=== PATIENT | male | born 1955 | race Caucasian/White ===

== ENCOUNTER 2022-01-18 11:49 | Outpatient (CLI) | payer MEDICARE, SELFPAY ==
--- NOTE | 2022-01-18 12:48 | ECG_ITS ---
Measurements Intervals [place] Rate: 52 P: 264 NC: 192 QRS: -20 QRSD: 126 T: 28 QT: 459 QTc: 427 Interpretive Statements SINUS OR ECTOPIC ATRIAL BRADYCARDIA INTRAVENTRICULAR CONDUCTION DELAY POOR R WAVE PROGRESSION, ANTERIOR LEADS BASELINE ARTIFACT- I, II, III, AVR, AVL, AVF, V1-V6 BORDERLINE ECG NO PREVIOUS ECG AVAILABLE FOR COMPARISON Electronically Signed On 01-18-2022 13:38:52 [employer] by Kvng Proctor D.O.
[2022-01-18 13:27] LABS: Basophils Absolute Auto 0.1 K/mm3 (0.0-0.1); Basophils Percent Auto 0.9 % (0.2-1.2); Eosinophils Absolute Auto 0.4 K/mm3 (0-0.3); Eosinophils Percent Auto 6.1 % (0-4.4); Hematocrit 44.3 % (42.0-52.0); Hemoglobin 15.6 g/dL (14.0-18.0); Immature Granulocyte Absolute 0.03 K/mm3 (0.00-0.031); Immature Granulocyte Percent A 0.5 % (0-0.5); Immature Platelet Fraction Pct 7.9 % (0.9-11.2); Lymphocytes Absolute Auto 1.63 K/mm3 (0.9-3.2); Lymphocytes Percent Auto 28.3 % (18.3-44.2); Mean Corpuscular HGB Conc 35.2 g/dl (32-36); Mean Corpuscular Hemoglobin 34.6 pg (26-34); Mean Corpuscular Volume 98.2 fl (80-100); Mean Platelet Volume 11.2 fl (7.4-10.4); Monocytes Absolute Auto 0.4 K/mm3 (0.1-0.6); Monocytes Percent Auto 6.8 % (2.6-8.5); Neutrophils Absolute Auto 3.3 K/mm3 (1.3-6.7); Neutrophils Percent Auto 57.4 % (45.5-73.1); Platelet Count Result 141 k/mm3 (150-375); Red Blood Count 4.51 M/mm3 (4.6-6.20); Red Cell Distribution Width 11.8 % (11.5-14.5); White Blood Count 5.8 K/mm3 (4.5-10.0)
[2022-01-18 13:31] LABS: Albumin Level 4.7 g/dL (3.5-5.1); Anion Gap 11 mmol/L (8-16); Blood Urea Nitrogen 18 mg/dL (9-20); Calcium 8.8 mg/dL (8.4-10.2); Carbon Dioxide 29 mmol/L (22-30); Chloride 100 mmol/L (98-107); Estimated Glomerular Filt Rate > 60; Glucose 97 mg/dL (65-110); Potassium 4.1 mmol/L (3.4-5.0); Sodium 140 mmol/L (137-145)
[2022-01-18 13:33] LABS: Hemoglobin A1C 5.6 % (<5.7)
[2022-01-18 13:38] LABS: Urine Cotinine NEGATIVE
== END 2022-01-18 11:50 | disposition home or self-care (01) ==
LOC: ANHSURGERY 11:54
PROVIDERS: PCP Family Medicine Adolescent Medicine; Visit Provider Orthopaedic Surgery
DX: M17.11 Unilateral primary osteoarthritis, right knee (principal); Z01.818 Encounter for other preprocedural examination; I45.9 Conduction disorder, unspecified
CPT/HCPCS: 80048; 80307; 82040; 83036; 85025; 85055; 87081; 93005

== ENCOUNTER 2022-02-09 01:25 | Day surgery (SDC) | payer MEDICARE, SELFPAY ==
[2022-01-18 12:16] VITALS: BP 123/75; PULSE 56; RESP 16; TEMP 36.3; O2SAT 97; BMI 33.7
--- NOTE | 2022-01-18 12:25 | PC.NURSE ---
Report to the Outpatient Waiting Room, entrance under the green pavilion located off [facility], at time __6:00AM on date _02/09/22 . Planned Procedure Time: __7:30AM . Time changes happen often and if your time is changed the preop area will call you the afternoon before. - You and your visitor will be asked to self-screen and do not enter if you have any COVID symptoms. - We encourage only one visitor and NO visitors under age 16 are allowed at this time. Your visitor will receive communication by the phone number that is given day of service. - The patient visitor is requested to social distance or may leave the building when not with patient due to restrictions. - A mask is required within the hospital. Patients may have clear liquids (water, carbonated beverages, clear teas, apple juice) until 3 hours prior to surgery with a maximum of 20 ounces. - No food from midnight until time of surgery Take the following medications with a SIP of water the morning of surgery: ___PROPRANOLOL Medications to discontinue per physician ___HOLD INDOMETHACIN 7 DAYS PRE-OP, HOLD ASPIRIN PER DR HASTINGS, HOLD ALL VITAMINS/SUPPLEMENTS 3 DAYS PRE-OP- LAST DOSE 02/05/22 Please no make-up, nail german, hairspray, perfume, deodorant, or body powder the day of surgery. No jewelry (including any body piercings) or valuables the day of surgery, leave them at home. Please take a shower or bath the night before, or the morning of, surgery with an antibacterial soap. Wear comfortable, loose fitting clothing. Children are encouraged to wear pajamas. - Jewelry must be removed prior to entering the operating room. Rings and piercings that are not removed may be cut off. - The hospital will not accept responsibility for valuables. - Please leave all valuables, including medications, at home the day of surgery. If you are going home after surgery, a licensed transportation driver must drive you home. - NO public transportation without another adult. - We recommend that an adult stay with you for 24 hours following discharge. - We also recommend that you do not drive, make important decision, drink alcoholic beverages, or take any drugs that were not prescribed by your health care provider for at least 24 hours after your discharge time. Follow any additional instructions given to you from your surgeon. If you or anyone in your household have experienced Covid symptoms in the past week, please notify your surgeon or the nurse liaison at the phone number below for possible testing. Telephone instructions given to __PATIENT and asked if any additional questions and then verbalized understanding. Patient advised to call surgeon office or pre surgery nurse liaison [phone] if any additional questions.
--- NOTE | 2022-02-07 16:34 | PM.IMHP ---
H&P: HPI History of Present Illness Date/Time: 02/07/22 16:34 Chief Complaint: Right knee DJD Narrative: 66-year-old male patient of Dr. Dumont who presents today for a right total knee arthroplasty. He has been having progressively worsening pain in his right knee for the last several years. He has had cortisone injections in the past last 1 was in 2017. He takes indocin and on a scheduled basis and has done this for years. Patient has severe medial compartment osteoarthritis in the right knee. He has symptoms on a daily basis that are affecting his lifestyle at this point. He feels he is ready proceed with total knee arthroplasty rather than continue nonsurgical treatment at this point. Review of Systems Review of Systems: All systems reviewed & are unremarkable except as noted in HPI and below PMFSH Social History Social History Smoking packs per day: 1 Smoking cigarettes per day: 20.0 Years smoked: 30 Smoking pack-years: 30.00 Smoking status: Former smoker Tobacco type: cigarettes Smoking end date: 09/03/97 Alcohol intake: current Drinks per week: 21 Substance use: never Additional living arrangements comments: SPOUSE Spiritual care concerns: No Meds Home Medications and Allergies Home Medications Medication Instructions Recorded Confirmed Type aspirin 81 mg tablet,delayed 81 mg PO DAILY 10/27/21 01/18/22 History release (Adult Aspirin Regimen) simvastatin 40 mg tablet See Rx Instructions .Route 11/26/21 01/18/22 Rx .COMPLEX #100 tabs indomethacin 50 mg capsule See Rx Instructions .Route 12/05/21 01/18/22 Rx .COMPLEX #300 caps propranolol 120 mg capsule,24 See Rx Instructions .Route 01/09/22 01/18/22 Rx hr,extended release .COMPLEX #100 caps vmezsofg-ucu-wzqtl acid 300 1 tablet PO DAILY 01/18/22 01/18/22 History mcg-lycopene 600 mcg-lutein 300 mcg tablet (Centrum Silver Men) testosterone 100 mg/mL 250 mg IM WEEKLY 01/18/22 01/18/22 History intramuscular suspension Allergies Allergy/AdvReac Type Severity Reaction Status Date / Time No Known Allergies Allergy Mild Verified 01/25/22 12:48 Exam Narrative: 59-year-old male alert pleasant. He is 6 ft tall and 253 lb his BMI is 34.3. He has a 2+ dorsalis pedis and posterior artery pulse palpable in the right foot. Normal sensation right foot. Range motion of the knee is from 2-135 degrees. He has a mild effusion. Hip range of motion is full without discomfort. Minimal tenderness over the medial joint line. Negative Stinchfield maneuver. Normal quad strength. No edema in lower extremity. Resp: Auscultation: clear to auscultation bilaterally Cardio: Rate: regular rate Rhythm: regular rhythm Assessment and Plan Assessment and plan (1) Arthritis of knee, right: Code(s): M17.11 - Unilateral primary osteoarthritis, right knee Status: Acute Plan 66-year-old male who has severe medial compartment osteoarthritis in the right knee. Again at this point it is affecting him on a daily basis and he feels he is ready proceed with total knee arthroplasty at this point. Surgical procedure as well as the risks and complications were discussed in detail questions were answered and we will proceed. Patient will avoid his indomethacin and any other aspirin ibuprofen products 1 week prior to surgery. He will see Dr. Dumont for pre-surgical clearance. We will plan to use Eliquis for DVT prophylaxis postoperatively. His Chem panel, creatinine 0.90 wrist was Chem panel is a normal limits. Hemoglobin 15.6 and platelets are 141. Patient's nasal swab was negative.
[2022-02-09] VITALS (16 sets, daily range): BP systolic 125–159; BP diastolic 64–98; PULSE 86–101; RESP 9–20; TEMP 36.1–36.9; O2SAT 92–99
--- NOTE | ~2022-02-09 | XR_ITS ---
EXAMINATION: XR knee RT 2V DATE: 02/09/2022 11:43 [employer]IC[employer] INDICATION: Right total knee arthroplasty TECHNIQUE: 2 views right knee FINDINGS: There is a right total knee arthroplasty in expected position. Subcutaneous gas with fluid and air in the joint are consistent with recent surgery. No evidence of periprosthetic fracture. IMPRESSION: 1. Recent right total knee arthroplasty. Reviewed, dictated and finalized at location A. [employer] ENG[employer]ER
[2022-02-09] MEDS: ACETAMINOPHEN 500 MG TABLET 1000 MG PO ×3 (06:25→21:04)
[2022-02-09] MEDS: LACTATED RINGERS 1,000 ML 30 ML IV CONT ×2 (06:40→11:23)
--- NOTE | 2022-02-09 06:40 | P.PNAN_ITS ---
Anes - Initial Pre Proc Eval Procedure: Operation Date: 02/09/22 07:30 Proposed Procedures p Right Total Knee Arthroplasty - Gelacio Kowalski MD Date/Time: 02/09/22 06:40 Surgeon: Gelacio Kowalski MD Pre Op Diagnosis: oa right knee Patient Data Age: 66 Gender: M Height: 1.83 m Weight: 113.1 kg Last Vital Signs Temp 36.3 C L 01/18/22 12:16 Pulse 56 L 01/18/22 12:16 Resp 16 01/18/22 12:16 BP 123/75 01/18/22 12:16 Pulse Ox 97 01/18/22 12:16 O2 Del Method Room Air 01/18/22 12:16 Allergies Allergy/AdvReac Type Severity Reaction Status Date / Time No Known Allergies Allergy Mild Verified 02/09/22 06:22 Home Medications Medication Instructions Recorded Confirmed Type aspirin 81 mg tablet,delayed 81 mg PO DAILY 10/27/21 02/09/22 History release (Adult Aspirin Regimen) simvastatin 40 mg tablet See Rx Instructions .Route 11/26/21 02/09/22 Rx .COMPLEX #100 tabs indomethacin 50 mg capsule See Rx Instructions .Route 12/05/21 02/09/22 Rx .COMPLEX #300 caps propranolol 120 mg capsule,24 See Rx Instructions .Route 01/09/22 02/09/22 Rx hr,extended release .COMPLEX #100 caps ceyfnadj-zda-gterv acid 300 1 tablet PO DAILY 01/18/22 02/09/22 History mcg-lycopene 600 mcg-lutein 300 mcg tablet (Centrum Silver Men) testosterone 100 mg/mL 250 mg IM WEEKLY 01/18/22 02/09/22 History intramuscular suspension Patient hx anesthesia problems: none Family hx anesthesia problems: none Results Review: All pre-operative results and documents have been reviewed as part of the pre- operative evaluation. [facility] Social History Social History Smoking packs per day: 1 Smoking cigarettes per day: 20.0 Years smoked: 30 Smoking pack-years: 30.00 Smoking status: Former smoker Tobacco type: cigarettes Smoking end date: 09/03/97 Alcohol intake: current Drinks per week: 21 Substance use: never Living arrangements: with family Additional living arrangements comments: [facility]OU[place] Spiritual care concerns: No Anes - Eval Final PreProcedure Day of Procedure 02/09/22 06:40 Patient weight: obese Heart: regular rate and rhythm Lungs: decreased breath sounds Airway: Mallampati scale class III Neurological: alert and oriented Last oral intake: >/= 8 hours ASA classification: III Emergent: no Anesthetic plan: proceed Anesthesia type and monitoring: general ETT and standard monitoring Results Review: All pre-operative results and documents have been reviewed as part of the pre- operative evaluation. Informed Consent: The patient's anesthetic plan and its attendant risks and benefits were discussed with the patient/family/POA. Questions were solicited and answers provided to the satisfaction of the patient/family/POA.
[2022-02-09] MEDS: TRANEXAMIC ACID 1,000MG/ISO100 1,000 MG/100 ML BAG 200 MG IVPB (06:59)
--- NOTE | 2022-02-09 07:18 | WPDHPUPDATE1 ---
History and Physical Update Update Date/Time: 02/09/22 07:18 History and Physical has been reviewed, including an updated exam of the patient. There are NO changes in the patient's condition. Risks, benefits, and alternatives have been discussed and questions answered. Patient agrees to proceed with procedure.
[2022-02-09] MEDS: ceFAZolin 2 GM/D5W 50 ML 2 GM/50 ML BAG IVPB ×3 (07:38→23:51)
[2022-02-09] MEDS: ceFAZolin SODIUM 1 GM VIAL 3 GM (08:17)
[2022-02-09] MEDS: GENTAMICIN BONE CEMENT REFOBACIN 1 EACH TOPICAL (08:18)
[2022-02-09] MEDS: ceFAZolin SODIUM 1 GM VIAL 2 GM IV PUSH (10:07)
[2022-02-09] MEDS: TRANEXAMIC ACID 1,000 MG/10 ML AMPUL 1000 MG IV PUSH (10:08)
[2022-02-09] MEDS: KETOROLAC 15 MG/ML VIAL (*BKC) IV PUSH ×3 (10:14→23:52)
--- NOTE | 2022-02-09 11:36 | W.PM.PROC2 ---
Procedure Note - Detailed Date of Procedure 02/09/22 Pre-op Diagnosis oa right knee Post-op Diagnosis Same Procedure Performed Right total knee arthroplasty Surgeon Gelacio Kowalski MD [employer] Head Juana Singleton Anesthesia General Description of Procedure Patient was brought to the operating room and general anesthesia was administered. He received weight based vancomycin 2 g of Ancef 1 g of and tranexamic acid preoperatively. The right leg was prepped draped usual fashion. He had a slight positive bounce under anesthesia getting him few degree flexion contracture. Limb was exsanguinated tourniquet elevated to 300 mmHg. 8 in longitudinal midline incision was used and a standard parapatellar arthrotomy utilized. Infrapatellar and suprapatellar fat pads were excised a quadriceps synovectomy carried out. The patella had almost normal cartilage except for a 5 mm area of central chondromalacia. There was some small osteophytes were trimmed. A minimal lateral facetectomy was performed. I felt the patella was suitable for non resurfacing. A guide mikael was inserted down the femoral canal after aspiration of canal contents using the 5 degree valgus cutting bushing 9 mm of bone removed the distal femur. This removed equal amounts medially and laterally because of the eburnation on the medial femoral condyle. Next the tibial plateau was cut. We tried to make a conservative cut because he did not have very much slope posteriorly. A skim cut was made off the low point medial tibial plateau and we assessed the alignment. I thought we were in perhaps a degree of record bottom. We applied the tibial cutting guide introducing a little bit more slope using the same pin hole and this removed about a mm more of bone from the posterior aspect of the tibial plateau. Bone quality was excellent. Meniscal remnants were excised and the PCL was recessed. Flexion gap measured 9 mm medially and 12 mm laterally. The femoral sizing guide was applied distal femur set at 4? of external rotation which matched Whitesides line. Posterior referencing pinholes were placed and the size 72.5 vanguard cutting block was applied AP and chamfer cuts were made this was a nice fit medial to lateral and anterior to posterior. The we inserted the 10 mm CR insert and with a Cárdenas elevator we had about 1/2-2 mm of gap medially at 90? 2-2 and half laterally. He did not have a significant varus deformity is medial compartment osteoarthritis therefore we did not perform any medial capsule release. We removed the small anteromedial residual osteophytes. The tibia was sized to a 79 placed at proper rotation and punched. We trialed with the 11 insert and we had appropriate stability at 90? of flexion to anterior drawer. We lacked about 5? of extension and there is no play medially and laterally in this position. Therefore an additional 2 mm of bone removed the distal femur chamfer cuts revisited. We trialed again and the knee had a fairly positive bounce with 1 mm of medial opening the valgus stress and no lateral opening and I did not feel this was satisfactory. Therefore an additional 1 mm of bone was removed the distal femur chamfer cuts revisited. Femoral component was placed on the femur and removed residual posterior femoral bone was removed. We did not perform posterior capsular release. Now on trialing the knee came out to full extension with negative bounce a 2 mm medial opening and 1 mm lateral opening in extension excellent anterior drawer stability all the way back. Before the last femoral cut we had put down the tourniquet. Limb was re-exsanguinated and tourniquet real a vein at this time. Lug drills for the femoral component were drilled. A step drill was used to make numerous holes throughout the tibial plateau and distal femur as his bone quality was quite dense. The bony surfaces were thoroughly irrigated and dried. Two batches of methylmethacrylate 1 gentamicin powder mixed cem
[2022-02-09] MEDS: fentaNYL CITRATE INJ (*CRX) 100 MCG/2 ML VIAL 25 MCG IV PUSH ×7 (11:49→12:36)
--- NOTE | 2022-02-09 13:21 | ADMGEN ---
This patient, Albaro Yancey, was admitted to Medical Room [facility]- at 1256. Patient/family oriented to hospital policies and general routines including ID bracelet, bed and alarms, visiting hours, pain management, procedures, bathroom and other care routines, personal items, smoking policy, room service/diet, and visiting hours. Information on how to activate the Rapid Response Team has been discussed. Patient/Family are encouraged to report perceived risks to care and to ask questions if they do not understand what they are told or what they should do.
[2022-02-09] MEDS: MORPHINE SULFATE (*CRX) 2 MG/ML INJ IV PUSH (13:36)
[2022-02-09] MEDS: SODIUM CHLORIDE 0.9% IV 1,000 ML 125 ML IV CONT (14:16)
[2022-02-09] MEDS: oxyCODONE HCL (*CRX) 5 MG TAB IR PO ×3 (14:22→21:04)
--- NOTE | 2022-02-09 23:45 | WPDCN ---
Assessment and Plan Assessment and plan (1) Arthritis of right knee: Code(s): M17.11 - Unilateral primary osteoarthritis, right knee Status: Acute Assessment and Plan: Postoperative day 0 status post right total knee arthroplasty. Wound care, pain control, and DVT prophylaxis deferred to Dr. Kowalski. PT/OT consulted. Check baseline labs in a.m. (2) Essential tremor: Code(s): G25.0 - Essential tremor Status: Acute Assessment and Plan: Continue propranolol. (3) Hypercholesterolemia: Code(s): E78.00 - Pure hypercholesterolemia, unspecified Status: Acute Assessment and Plan: Continue simvastatin. Check LFTs in a.m. Plan Thank you for allowing us to participate in this patient's care. Please do not hesitate to contact us with any questions. Supervising physician for this medical consultation is Dr. Dr. Kristin Daniel. HPI Data of Consult Date/Time: 02/09/22 23:45 Requesting Physician: Gelacio Kowalski MD Consult Narrative Reason for consult: Postoperative medical management. Narrative: This is a 66-year-old male with history of essential tremors, hypercholesterolemia, and osteoarthritis whom the hospitalist service has been consulted for help managing his medical conditions postoperatively. He has had longstanding pain in his right knee which has continued despite conservative outpatient treatment and he presented for elective replacement today. Surgery was performed under general anesthesia with no immediate complications documented an estimated blood loss of 250 mL. Postoperatively his pain is well controlled and he has been up and about in his room to the bathroom and to the chair and is doing well with that. He denies postoperative fever, chills, sweats, chest pain, shortness a breath, nausea, and vomiting. He also denies paresthesias, skin color, and temperature changes distal to the surgical site. He has no personal or family history of DVT. Review of Systems Review of Systems: Twelve systems were reviewed and are negative except for as per HPI. [facility] Past Medical History Medical History (Updated 02/10/22 @ 00:39 by Ana María Mendoza PA-C) Cerebrovascular accident (2011) Presented with ataxia, no residual deficits. Essential tremor Hypercholesterolemia Surgical History Surgical History (Updated 02/10/22 @ 00:26 by Ana María Mendoza PA-C) History of right knee joint replacement (02/09/22) Family History Family History (Updated 02/10/22 @ 00:38 by Ana María Mendoza PA-C) Father Cerebrovascular accident Social History Social History (Updated 02/10/22 @ 00:38 by Ana María Mendoza PA-C) Social History: Surrogate medical decision maker: Linn Yancey, spouse. Code status: Full code. Smoking packs per day: 1 Smoking cigarettes per day: 20.0 Years smoked: 30 Smoking pack-years: 30.00 Smoking status: Former smoker Tobacco type: cigarettes Smoking end date: 09/03/97 Alcohol intake: current Drinks per week: 21 Substance use: never Lack of Transportation: No Lack of Food: Never True Current Housing: I Have Housing Concerned About Future Housing: No Difficulty Paying Gas/Electric Bills: No Difficulty Paying for Meds: No Currently Unemployed: No Education: Trade/Vocational Certificate Difficulty w/ Childcare or Family Care: No Additional living arrangements comments: The patient lives with his in [place]. 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 Spiritual care concerns: No Meds Home Medications and Allergies Home Medications Medication Instructions Recorded Confirmed Type aspirin 81 mg tablet,delayed 81 mg PO DAILY 10/27/21 02/09/22 History release (Adult Aspirin Regimen) simvastatin 40 mg tablet See Rx Instructions .Route 11/26/21 02/09/22 Rx .COMPLEX #100 tabs indomethacin 50 mg capsule See Rx Instructions .Route 12/05/2102/09
[2022-02-10] MEDS: oxyCODONE HCL (*CRX) 5 MG TAB IR PO ×4 (00:28→12:03)
[2022-02-10 02:33] VITALS: BP 154/69; PULSE 99; RESP 18; TEMP 36.5; O2SAT 96
[2022-02-10 06:10] LABS: Basophils Percent Auto 0.2 % (0.2-1.2); Eosinophils Percent Auto 0.4 % (0-4.4); Hematocrit 36.4 % (42.0-52.0); Hemoglobin 12.2 g/dL (14.0-18.0); Immature Granulocyte Absolute 0.04 K/mm3 (0.00-0.031); Immature Granulocyte Percent A 0.5 % (0-0.5); Lymphocytes Absolute Auto 1.17 K/mm3 (0.9-3.2); Lymphocytes Percent Auto 14.3 % (18.3-44.2); Mean Corpuscular HGB Conc 33.5 g/dl (32-36); Mean Corpuscular Hemoglobin 34.2 pg (26-34); Mean Platelet Volume 10.5 fl (7.4-10.4); Monocytes Absolute Auto 0.7 K/mm3 (0.1-0.6); Monocytes Percent Auto 9.1 % (2.6-8.5); Neutrophils Absolute Auto 6.2 K/mm3 (1.3-6.7); Neutrophils Percent Auto 75.5 % (45.5-73.1); Platelet Count Result 153 k/mm3 (150-375); Red Blood Count 3.57 M/mm3 (4.6-6.20); Red Cell Distribution Width 13.1 % (11.5-14.5); White Blood Count 8.2 K/mm3 (4.5-10.0)
[2022-02-10 06:20] LABS: Alanine Aminotransferase 30 U/L (6-50); Albumin Level 4.1 g/dL (3.5-5.1); Alkaline Phosphatase 57 U/L (38-126); Anion Gap 4 mmol/L (8-16); Aspartate Amino Transferase 28 U/L (17-59); Bilirubin,Total 0.4 mg/dL (0.2-1.3); Blood Urea Nitrogen 15 mg/dL (9-20); Calcium 8.1 mg/dL (8.4-10.2); Carbon Dioxide 32 mmol/L (22-30); Chloride 97 mmol/L (98-107); Estimated CRCL calculation 74 ml/min; Estimated Glomerular Filt Rate > 60; Glucose 113 mg/dL (65-110); Potassium 4.2 mmol/L (3.4-5.0); Sodium 133 mmol/L (137-145)
[2022-02-10 06:33] VITALS: BP 126/75; PULSE 97; RESP 16; TEMP 36.4; O2SAT 94
--- NOTE | 2022-02-10 07:20 | PM.PNORT ---
Subjective Subjective Date/Time Seen: 02/10/22 07:20 Postop day 1 patient is alert. Afebrile vital signs are stable. Pain is well controlled. Patient was up overnight walking in the room going to the restroom multiple times. His dressing is dry and intact. He is able do a straight leg raise, neurovascularly he is intact. His Eliquis will start this morning. We will plan to have patient work with therapy today and discharge home early this afternoon Objective Data Vital Signs Vital Signs: Vital Signs - 24 hr 02/09/22 11:22 02/09/22 11:37 02/09/22 11:52 Temperature 36.8 C Pulse Rate 86 94 93 Respiratory Rate 9 L 10 L 11 L Blood Pressure 131/72 145/94 H 141/96 H Pulse Oximetry 97 99 98 Oxygen Delivery Simple Face Mask Room Air Room Air Oxygen Flow Rate 10 02/09/22 12:07 02/09/22 12:20 02/09/22 12:35 Temperature Pulse Rate 92 89 92 Respiratory Rate 11 L 12 12 Blood Pressure 125/98 H 137/98 H 129/73 Pulse Oximetry 96 99 98 Oxygen Delivery Room Air Nasal Cannula Nasal Cannula Oxygen Flow Rate 2 2 02/09/22 12:47 02/09/22 13:57 02/09/22 12:48 Temperature 36.1 C L Pulse Rate 88 93 Respiratory Rate 12 12 Blood Pressure 135/87 126/79 Pulse Oximetry 95 95 97 Oxygen Delivery Nasal Cannula Nasal Cannula Oxygen Flow Rate 2 1 02/09/22 13:03 02/09/22 13:33 02/09/22 14:33 Temperature 36.2 C L 36.3 C L 36.2 C L Pulse Rate 91 93 101 H Respiratory Rate 12 16 16 Blood Pressure 159/83 H 141/87 H 145/64 H Pulse Oximetry 96 94 92 Oxygen Delivery Oxygen Flow Rate 02/09/22 14:50 02/09/22 18:33 02/09/22 20:00 Temperature 36.4 C Pulse Rate 89 89 Respiratory Rate 16 16 Blood Pressure 146/82 H Pulse Oximetry 98 98 Oxygen Delivery Room Air Room Air Oxygen Flow Rate 02/09/22 22:54 02/10/22 02:33 02/10/22 06:33 Temperature 36.8 C 36.5 C 36.4 C Pulse Rate 95 99 97 Respiratory Rate 18 18 16 Blood Pressure 144/80 H 154/69 H 126/75 Pulse Oximetry 95 96 94 Oxygen Delivery Oxygen Flow Rate Intake/Output Intake/Output: Intake & Output 02/07/22 02/08/22 02/09/22 02/10/22 23:59 23:59 23:59 23:59 Intake Total 3180 50 Balance 3180 50 Meds/Results Medications: Active Medications Generic Name Dose Route Start Last Admin Trade Name Freq PRN Reason Stop Dose Admin Acetaminophen 1,000 mg 02/09/22 15:00 02/10/22 04:59 Acetaminophen 500 Mg Tablet PO Not Given Q6H JACKIE Apixaban 2.5 mg 02/10/22 09:00 Apixaban 2.5 Mg Tablet PO Q12HR JACKIE Celecoxib 200 mg 02/10/22 08:00 Celecoxib 200 Mg Capsule PO DAILY@0800 JACKIE Cephalexin HCl 500 mg 02/10/22 13:00 Cephalexin 500 Mg Capsule PO 02/17/22 06:01 Q6HR JACKIE Vancomycin HCl 1,000 mg in 250 mls @ 250 mls/hr 02/09/22 19:00 02/10/22 06:27 Vancomycin 1,000 Mg/D5w 250 Ml IVPB 02/10/22 07:59 250 mls/hr Q12H JACKIE Administration Cefazolin Sodium 2 gm in 50 mls @ 100 mls/hr 02/09/22 16:00 02/10/22 00:25 Ancef 2 Gm/D5w 50 Ml IVPB 02/10/22 08:29 Infused Q8H JACKIE Infusion Morphine Sulfate 2 mg 02/09/22 12:48 02/09/22 13:36 Morphine Sulfate (*Crx) 2 Mg/Ml Inj IV PUSH 2 mg Q1H PRN Administration Pain Rated 7-10 Naloxone HCl 0.1 mg 02/09/22 12:48 Naloxone Hcl 0.4 Mg/Ml Vial IV PUSH Q2M PRN Opiate Reversal Oxycodone HCl 5 mg 02/09/22 13:00 02/10/22 05:37 Oxycodone Hcl (*Crx) 5 Mg Tab Ir PO 5 mg Q4HR JACKIE Administration Oxycodone HCl 5 mg 02/09/22 12:48 Oxycodone Hcl (*Crx) 5 Mg Tab Ir PO Q4H PRN Pain Rated 4-10 Polyethylene Glycol 17 gm 02/10/22 09:00 Polyethylene Glycol 3350 17 Gm Powd.Pack PO QAM [facility] Propranolol HCl 120 mg 02/10/22 09:00 Propranolol Hcl 60 Mg Capsule Cr PO QAM [facility] Simvastatin 20 mg 02/10/22 09:00 Simvastatin 20 Mg Tablet PO DAILY [facility] Radiology Results: ITS Impressions Knee X-Ray 02/09/22 11:43 IMPRESSION: 1. Recent right total knee arthropla
--- NOTE | 2022-02-10 07:24 | PM.DS ---
DS: Admitting Diagnosis Discharge Date 02/10 Admitting Diagnosis Right knee DJD DS: Discharge Diagnosis Discharge Diagnosis (1) Arthritis of right knee: Code(s): M17.11 - Unilateral primary osteoarthritis, right knee Status: Acute DS: Summary Hospital Course Hospital Course: 66-year-old male who underwent right total knee arthroplasty on 02/09. Underwent the procedure without complications. Postoperatively he has been afebrile vital signs are stable. Neurovascularly he is intact. His dressing is dry and intact. He was up walking in the as well as going to the restroom multiple times a day of surgery. Pain overall is well controlled with scheduled Tylenol as well as oxycodone 5 mg. He is also on Celebrex 200 mg daily. He is on Eliquis for DVT prophylaxis. The patient be discharged home on 02/10. He will go home on 1 week of Keflex, he is also going to go home on MiraLax and Senokot. Patient was advised to keep leg elevated at home prevent swelling but do his exercises on an hourly basis to prevent stiffness in the knee. He has outpatient therapy starting next Monday. He was advised any questions or concerns he is to call the office otherwise we will see him at his appointment dates Time Spent with Patient Time attestation: Total time spent providing and/or coordinating discharge services: DS: Data Data Completed and Pending Labs on day of discharge: Labs from last 24 hours 02/10/22 02/10/22 02/09/22 05:48 05:48 06:39 WBC 8.2 RBC 3.57 L Hgb 12.2 L D Hct 36.4 L MCV 102.0 H MCH 34.2 H MCHC 33.5 RDW 13.1 Plt Count 153 MPV 10.5 H Immature Gran % (Auto) 0.5 Neut % (Auto) 75.5 H Lymph % (Auto) 14.3 L [place] % (Auto) 9.1 H Eos % (Auto) 0.4 Baso % (Auto) 0.2 Lymph # (Auto) 1.17 [place] # (Auto) 0.7 H Eos # (Auto) 0.0 Baso # (Auto) 0.0 Abs Immat Gran (auto) 0.04 H Absolute Neuts (auto) 6.2 Absolute Nucleated RBC 0.0 Nucleated RBC % 0.0 Sodium 133 L Potassium 4.2 Chloride 97 L Carbon Dioxide 32 H Anion Gap 4 L BUN 15 Creatinine 1.10 Estim Creat Clear Calc 74 Estimated GFR > 60 Glucose 113 H Calcium 8.1 L Total Bilirubin 0.4 Direct Bilirubin 0.0 AST 28 ALT 30 Alkaline Phosphatase 57 Total Protein 7.0 Albumin 4.1 Blood Type O Positive Antibody Screen Negative Discharge Plan Discharge Patient Disposition: Home, Self-Care Discharge Instructions: ARJUN HASTINGS M.D [facility], [facility] [address] [place] [address] POST-OPERATIVE DISCHARGE INSTRUCTIONS TOTAL KNEE ARTHROPLASTY 1. When resting, lie on back with leg elevated above heart to minimize swelling. Significant swelling could indicate a blood clot and if this occurs call the office (or go to the ER) to have a venous ultrasound. 2. Do exercise 5 times a day. 3. Do not sit with leg down except for meals. 4. Wound Care: Nursing will give additional dressings at discharge. Patient to change dressing at home 1 week from surgery, then maintain until seen in office. 5. May shower with dressing in place. 6. Follow weight bearing status instructions. IMPORTANT: Remember not to sit in the chair for more than 30 minutes at a time. As a rule, during the first 14 days after surgery, only sit in the chair to work on the chair knee bending stretch exercise, for meals or for use of the restroom. Sitting in the chair promotes significant swelling in the knee and leg which will make the knee stiff and more painful and which simulates having a blood clot in the veins of the leg. If this type of significant diffuse swelling occurs, an ultrasound at the hospital will be necessary to rule out a blood clot. Be up walking around with the walker for a few minutes every hour while awake and then rest laying on your back on the couch or in bed with your leg elev
--- NOTE | 2022-02-10 08:37 | WPDANESPN ---
Anes - Prog Note Post-Op Date/Time: 02/10/22 08:37 Cardiovascular status: normal Respiratory status: normal Airway patency: baseline Mental status: baseline Post-Op hydration status: normal Vital Signs: Last Vital Signs Temp 36.4 C 02/10/22 06:33 Pulse 97 02/10/22 06:33 Resp 16 02/10/22 06:33 BP 126/75 02/10/22 06:33 Pulse Ox 94 02/10/22 06:33 O2 Del Method Room Air 02/09/22 20:00 O2 Flow Rate 1 02/09/22 13:57 Pain Score (VAS): 05/13 I/O: Intake & Output 02/09/22 02/10/22 02/10/22 23:59 07:59 15:59 Intake Total 2330 50 Balance 2330 50 Laboratory Tests 02/10/22 05:48 02/10/22 05:48 02/10/22 02/10/22 05:48 05:48 WBC 8.2 RBC 3.57 L Hgb 12.2 L D Hct 36.4 L MCV 102.0 H MCH 34.2 H MCHC 33.5 RDW 13.1 Plt Count 153 MPV 10.5 H Immature Gran % (Auto) 0.5 Neut % (Auto) 75.5 H Lymph % (Auto) 14.[address] [place] % (Auto) 9.1 H Eos % (Auto) 0.4 Baso % (Auto) 0.2 Lymph # (Auto) 1.17 [place] # (Auto) 0.7 H Eos # (Auto) 0.0 Baso # (Auto) 0.0 Abs Immat Gran (auto) 0.04 H Absolute Neuts (auto) 6.2 Absolute Nucleated RBC 0.0 Nucleated RBC % 0.0 Sodium 133 L Potassium 4.2 Chloride 97 L Carbon Dioxide 32 H Anion Gap 4 L BUN 15 Creatinine 1.10 Estim Creat Clear Calc 74 Estimated GFR > 60 Glucose 113 H Calcium 8.1 L Total Bilirubin 0.4 Direct Bilirubin 0.0 AST 28 ALT 30 Alkaline Phosphatase 57 Total Protein 7.0 Albumin 4.1 Post-procedural complaints: none Patient Feedback: Patient satisfied with anesthetic care.
[2022-02-10 08:42] VITALS: BP 142/85; PULSE 90
[2022-02-10 08:44] VITALS: PULSE 90
[2022-02-10] MEDS: polyethylene glycoL 3350 17 GM POWD.PACK PO (08:44)
[2022-02-10] MEDS: SIMVASTATIN 20 MG TABLET PO (08:44)
[2022-02-10] MEDS: CELECOXIB 200 MG CAPSULE PO (08:44)
[2022-02-10] MEDS: PROPRANOLOL HCL 60 MG CAPSULE CR 120 MG PO (08:44)
[2022-02-10] MEDS: APIXABAN 2.5 MG TABLET PO (08:45)
[2022-02-10] MEDS: ACETAMINOPHEN 500 MG TABLET 1000 MG PO (08:45)
[2022-02-10] MEDS: ceFAZolin 2 GM/D5W 50 ML 2 GM/50 ML BAG IVPB (08:46)
[2022-02-10 10:33] VITALS: BP 143/78; PULSE 83; RESP 18; TEMP 36.6; O2SAT 97
[2022-02-10] MEDS: CEPHALEXIN 500 MG CAPSULE PO (12:03)
--- NOTE | 2022-02-10 13:23 | PC.NURSE ---
On 02/10/22, the student, [Zohrhe Florez], provided care and completed [facility] documentation on this patient. I have reviewed the student's documentation and agree with the findings.
== END 2022-02-10 12:30 | disposition home or self-care (01) ==
LOC: ANHSURGERY 06:16 → ANH2MED 13:03
PROVIDERS: PCP Family Medicine Adolescent Medicine; Visit Provider Orthopaedic Surgery
PROC: (CPT 27447; principal; 2022-02-09 07:30)
DX: M17.11 Unilateral primary osteoarthritis, right knee (principal); G25.0 Essential tremor; E78.00 Pure hypercholesterolemia, unspecified; Z79.82 Long term (current) use of aspirin; Z79.890 Hormone replacement therapy; Z87.891 Personal history of nicotine dependence; E66.9 Obesity, unspecified; Z68.33 Body mass index [BMI] 33.0-33.9, adult
CPT/HCPCS: 27447; 36415; 73560; 80048; 80076; 80307; 82040; 83036; 85025; 85055; 86850; 86900; 86901; 87081; 93005; 97110; 97116; 97161; 97165; 97530; 97535; A9270; C1713; C1776; J0171; J0690; J1100; J1170; J1885; J2250; J2270; J2370; J2405; J2704; J2710; J2795; J3010; J3370; J7030; J7120

== ENCOUNTER → 2023-04-20 10:22 | Outpatient (CLI) | payer MEDICARE, SELFPAY ==
--- NOTE | ~2023-04-20 | XR_ITS ---
Clinical Indication: Cough PA and lateral views of the chest: Comparison: 05/07/2013 Findings: The lungs are clear, without evidence of focal consolidation or pleural effusion. Cardiome diastinal silhouette is stable. Bones and soft tissues are unremarkable. Impression: Normal chest. Reviewed, dictated and finalized at location . STRY HUNTER Impression: Normal chest.
== END ==
PROVIDERS: PCP Family Medicine Adolescent Medicine; Visit Provider Family Medicine Adolescent Medicine
DX: R05.3 Chronic cough (principal)
CPT/HCPCS: 71046

== ENCOUNTER 2024-07-17 17:25 | Outpatient (CLI) | payer MEDICARE, SELFPAY ==
--- NOTE | ~2024-07-17 | XR_ITS ---
Lumbosacral Spine: AP and lateral views Clinical History: Pain Findings: The normal lordotic curve is maintained. The vertebral bodies and posterior elements are i ntact. The intervertebral disc spaces are preserved. There is moderate to advanced facet arthropathy from L3 through S1. The sacroiliac joints are normally outlined. Impression: Moderate to advanced facet arthropathy from L3 through S1. Reviewed, dictated and finalized at location . Impression: Moderate to advanced facet arthropathy from L3 through S1.
--- OUTSIDE RECORDS SUMMARY | 2024-07-17 17:33 | XMS_ITS | Data Portability ---
Author Organization [place] - [facility], Main Office Address [address] [place] [address] Care Team Providers Care Sap Bw Bi Developer Name Role Phone MONA LANE Primary Care Provider MONA LANE Referring Provider Assessment Encounter Date Assessment Date Assessment LastModified by Organization Details LastModified Time 06/09/2022 06/09/2022 The patient has a laceration to the distal portion of the volar surface of the left 5th finger after a crush injury as well as a nondisplaced transverse fracture through the distal phalanx left 5th finger. Patient is currently on antibiotics and the laceration has been sutured in the emergency room. Today I took off the soiled dressing and splint. I redressed the finger with Xeroform gauze dry sterile gauze and fashioned a new splint that was well-padded with aluminum splint this was fitted to his best comfort and support. I have advised him to take this off daily briefly to let the skin dry as he is retaining moisture. The wound looks okay but we will see him back in 1 week to take another look, some areas of the skin may become necrotic due to the nature of the injury we will have to follow this closely. He will continue with antibiotics and protection if he starts to have bleeding more pain etc. he will call immediately. He voiced understanding agrees above plan he will keep it clean and dry watch for evidence of infection. If he does develop necrosis or infection surgical intervention may be necessary voiced understanding agrees above plan. Not available 06/09/2022 12:22:10 06/16/2022 06/16/2022 Patient has a healing laceration of the pad of the left 5th finger he also has a transverse fracture nondisplaced through the distal phalanx. Today's x-rays show good alignment no evidence of displacement. Today the sutures removed in the office a clean dry sterile dressing was applied he is going to continue to wear the splint to protect the wound and the fracture as much as possible. I will see him back in 3 weeks for his next recheck he will keep a close eye on things if it starts look infected he will call immediately. He voiced understanding agrees above plan will call for any further problems difficulties or questions. Not available 06/16/2022 10:46:01 07/11/2022 07/11/2022 The patient has a healing fracture of the distal phalanx left 5th finger. The transverse fracture shows continued good alignment nondisplaced. Fracture line is starting to fade with new callus compared to previous x-rays done 3 weeks ago. The laceration the finger is healed nicely at this point he is going to continue to protect it somewhat he can work on some gentle range of motion also very gentle massage to help with the hypersensitivity in the finger pad. As he feels comfortable he can get back into regular activities in about a month. I offered to have him back for 1 final x-ray in a month he declined. He states he is feeling well I think this is okay the fracture should heal and he is feeling good already. If he has any problems difficulties or questions he can call me at any time he voiced understanding and agrees with above plan. Not available 07/11/2022 12:06:53 02/10/2023 02/10/2023 HPI: Patient returns. He is 1 year out from right total knee arthroplasty. He is doing very well. He is happy with his results. He has had no symptoms in the knee. His only complaint is that he is not able to kneel on the right knee. I discussed with him that the majority of people following knee replacement comfortable kneeling on it and he knew this prior surgery. Otherwise he is very happy with his results. Physical exam: 67-year-old male alert pleasant. He has a well-healed incision. No effusion in the right knee. Range of motion is from 0-135 degrees. He has excellent stability both flexion and extension. No swelling in either lower extremity. Impression: Patient is 1 year out right total knee arthroplasty. He has excellent range of motion stability in the knee. X-rays look excellent. Long-term risk of infection was discussed. We will plan on seeing her back in 5 years for routine x-ray surveillance or sooner if he has problems. 20 minutes was spent in treatment patient more than half of this in [id number] conversation duncan Not available 02/10/2023 12:17:04 Plan of Treatment Reminders Order Date Submit Date Provider Last Modified By Organization Details Last Modified Time Details Appointments None record ed. Lab None record ed. Referral None record ed. Procedures None record ed. Surgeries None record ed. Imaging XR, knee 023 02/11/20 23 [email or web address] [facility] [place], [address], [place], [address], 3 15:15:32 XR, finger (s) 023 07/12/19 23 [email or web address] [facility] [place], [address], [place], [address], 3 17:20:38 XR, finger (s), 2 or more view 023 06/17/19 23 [facility] [place], [address], [place], [address], 3 12:20:50 Medication Orders None record ed. Patient TargetsNo targets recorded. Patient InstructionsNo instructions recorded. Reason for Referral None Reported. Results Created Date Observation Date Name Description Value Unit Range Abnormal Flag Note LastModifiedBy Organization Detail LastModifiedTime 03/23/19 23 XR, knee No observ ation record ed. [id number] [facility] [place] [address], [place], [address], 05/04/2022 16:59:41 06/08/19 23 06/06/2022 XR, hand No observ ation record ed. [email or web address] Not Available 06/2022 15:43:03 06/17/19 23 XR, finge r(s), 2 or more view No observ ation record ed. [facility] [place] [address], [place], [address], 06/16/2022 11:10:31 07/12/19 XR, finge r(s) No observ ation record ed. [facility] [place] [address], [place], [address], 07/11/2022 12:10:24 02/11/20 23 XR, knee No observ ation record ed. [email or web address] [facility] [place] [address], [place], [address], 02/10/2023 12:15:58 Result Notes None recorded. Problems Name Problem SNOMED Code Status Onset Date Resolution Date Notes Provider Name and Address Organization Details Recorded Time Osteoarthr itis of knee 858774010 Active Not Available [facility] 3 16:58:10 Knee pain Active Not Available [facility] 3 16:58:10 Osteoarthr itis 881730287 Active Not Available [facility] 3 16:58:10 Pain of right knee joint 9056174827583 00 Active [address] Not [address] 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 3 16:58:10 Pain of left hand 6299716845863 03 Active 2022 TELMA Saleem, [place] [facility] [employer] 3 10:46:53 Laceration of finger of left hand 3422647095768 9106 Active 2022 HEBER Mercado [address] [facility], [facility], [place], [address] , [place] [facility] [employer] 3 12:23:13 Open fracture of distal phalanx of finger 59575456 Active 2022 HEBER Mercado [address], [address], [place], [address] , [employer] 3 12:24:48 Open fracture of distal phalanx of finger 88759146 Active 2022 HEBER Mercado [address], [address], [place], [address] , [employer] 3 12:25:05 Fracture of phalanx of finger 59637579 Active 2022 HEBER Mercado [address], [address], [place], [address] , [employer] 3 11:17:02 Fracture of phalanx of finger 05159152 Active 2022 HEBER Mercado [address], [address], [place], [address] , [employer] 3 11:18:08 Problem Notes None recorded. Procedures Surgical History Date Name Laterality Status Provider Name and Address Organization Details Recorded Time Knee Surgery completed ROZINA Naik [employer] 02/10/2023 11:13:36 Imaging Results Imaging Date Name Status LastModified by Organiz [facility] Details LastModified Time 03/23/2022 XR, knee completed [id number] [facility] [place] [address], [place], [address], 05/04/2022 16:59:41 06/06/2022 XR, hand completed [email or web address] Information n ot available 06/07/2022 15:43:03 06/16/2022 XR, finger(s), 2 or more view completed [facility] [place] [address], [place], [address], 06/16/2022 11:10:31 07/11/2022 XR, finger(s) completed [facility] [place] [address], [place], [address], 07/11/2022 12:10:24 02/10/2023 XR, knee completed [email or web address] [facility] [place] [address], [place], [address], 02/10/2023 12:15:58 Procedure Notes None recorded. Medical Equipment None Reported. Allergies Allergen ID Allergen Name Allergen Category Reaction Reaction Severity Criticality Documentation Date Start Date Code Code System Note Provider Name and Address Organization Details Recorded Time 55003 opipramol Not available Not available Not available Not available 02/10/2023 7674 RxNorm ROZINA Naik, [place] [employer] 11:11:38 Medications Name Sig Start Date Stop Date Status Note LastModified by Organization Details LastModified Time celecoxib 200 mg capsule TAKE 1 CAPSULE BY MOUTH ONCE DAILY AT 8 AM 02/10 completed Not Available Not Available Not Available amoxicillin 500 mg capsule 11/26 completed Not Available Not Available Not Available prednisone 10 mg tablet TAKE 5 TABLETS BY MOUTH ONCE DAILY SEE [employer] ONS 03/11 completed Not Available Not Available Not Available propranolol 80 mg tablet Take 1 tablet twice a day by oral route. 02/23 completed Not Available Not Available Not Available azithromyci n 250 mg tablet 11/26 completed Not Available Not Available Not Available hydrocodone 5 mg-acetamin ophen 325 mg tablet 11/26 completed Not Available Not Available Not Available propranolol ER 60 mg capsule,24 hr,extended release 11/26 completed Not Available Not Available Not Available phentermine 37.5 mg tablet TAKE 1 TABLET BY MOUTH ONCE DAILY IN THE MORNING (MIDMORNI NG) 02/23 completed Not Available Not Available Not Available tramadol 50 mg tablet Take 1 tablet 3 times a day by oral route. 02/10 completed Not Available Not Available Not Available simvastatin 40 mg tablet Take 1 tablet every day by oral route. active Not Available Not Available No t Available hydrocodone 7.5 mg-acetamin ophen 325 mg tablet TAKE 1 TABLET BY MOUTH EVERY 4 HOURS NEEDED FOR PAIN 03/11 completed Not Available Not Available Not Available cephalexin 500 mg capsule TAKE 1 CAPSULE BY MOUTH EVERY 6 HOURS FOR 7 DAYS 03/11 completed Not Available Not Available Not Available triamcinolo ne acetonide 0.1 % topical ointment APPLY TO AFFECTED AREA ON FEET TWICE DAILY 02/10 completed Not Available Not Available Not Available propranolol ER 80 mg capsule,24 hr,extended release active Not Available Not Available Not Available ibuprofen 400 mg tablet 11/26 completed Not Available Not Available Not Available indomethaci n 50 mg capsule Take 1 capsule 3 times a day by oral route. active Not Available Not Available No t Available diclofenac sodium 75 mg tablet,jayson yed release 11/26 completed Not Available Not Available Not Available propranolol ER 120 mg capsule,24 hr,extended release active Not Available Not Available Not Available Viagra 100 mg tablet 11/26 completed Not Available Not Available Not Available testosteron e cypionate 200 mg/mL intramuscul ar oil 11/26 completed Not Available Not Available Not Available methylpredn isolone 4 mg tablets in a dose pack 11/26 completed Not Available Not Available Not Available tolmetin 400 mg capsule 11/26 completed Not Available Not Available Not Available naproxen 500 mg tablet TAKE 1 TABLET BY MOUTH TWICE DAILY, TAKE WITH FOOD 02/10 completed Not Available Not Available Not Available amoxicillin 875 mg-potassiu m clavulanate 125 mg tablet TAKE 1 TABLET BY MOUTH EVERY 12 HOURS FOR 10 DAYS 02/10 completed Not Available Not Available Not Available oxycodone 5 mg tablet TAKE 1 TABLET BY MOUTH EVERY 4 HOURS 03/11 completed Not Available Not Available Not Available Testim 50 mg/5 gram (1 %) transdermal gel 11/26 completed Not Available Not Available Not Available aspirin 2021 active Not Available Not Available Not Avai lable Zostavax (PF) 19,400 unit/0.65 mL subcutaneou s suspension 11/26 completed Not Available Not Available Not Available Eliquis 2.5 mg tablet TAKE 1 TABLET BY MOUTH EVERY 12 HOURS FOR 14 DAYS 03/11 completed Not Available Not Available Not Available Fluvirin 1262-6901 45 mcg (15 mcg x 3)/0.5 mL intramuscul ar suspension INJECT 0.5 ML INTRAMUSC ULARLY DIRECTED. 11/26 completed Not Available Not Available Not Available Fluarix Quad 4976-2842 (PF) 60 mcg (15 mcg x 4)/0.5 mL IM syringe 11/26 completed Not Available Not Available Not Available Fluvirin (PF) 45 mcg (15 mcg x 3)/0.5 mL intramuscul ar syringe ADM 0.5ML IM UTD 11/26 completed Not Available Not Available Not Available Fluarix Quad (PF) 60 mcg (15 mcg x 4)/0.5 mL IM syringe ADM 0.5ML IM UTD active Not Available Not Available No t Available Vitals Date Recorded Body height Provider Name an d Address Organization Details Last Updated DateTime 03/23/2022 182.88 cm Not Available [facility] 16:57:53 Date Recorded Body height Body mass index (BMI) Body weight Provider Name and Address Organization Details Last Updated DateTime 06/09/2022 182.88 cm 29.8 kg/m2 73165.32 g Chaparrita Hoover [facility] [employer] 06/09/2022 10:46:29 Date Recorded Body height Body mass index (BMI) Body weight Provider Name and Address Organization Details Last Updated DateTime 06/16/2022 182.88 cm 29.8 kg/m2 71439.32 g Nicole Romo [facility] [employer] 06/16/2022 10:19:34 Date Recorded Body height Provider Name an d Address Organization Details Last Updated DateTime 07/11/2022 182.88 cm Misa Yun Abdifatah [employer] 07/11/2022 11:41:20 Date Recorded Body height Body mass index (BMI) Body weight Provider Name and Address Organization Details Last Updated DateTime 02/10/2023 198.12 cm 30 kg/m2 522958.02 g Misa Yun [facility] [employer] 02/10/2023 11:22:41 Social History None recorded. Functional Status Question Answer Note LastModified by Organizat ion Details LastModified Time What is your level of alcohol consumption? Moderate [id number] Information not available 05/04/2022 Mental Status None recorded. Family History Relationship Description Onset Age of this Age Resolved Age Notes LastModified by Organization Details LastModified Time Father Hypertensive disorder [email or web address] Not available 2022 11:13:02 Medical History Condition Response BLINDNESS N KIDNEY STONES N MRSA N CARPAL TUNNEL SYNDROME N LUNG DISEASE/DISORDER N HISTORY OF DRUG ABUSE N RADIATION / CHEMOTHERAPY N COPD N SPORTS INJURY N ANKLE PAIN N BLOOD DISEASES N SCHIZOPHRENIA N SHINGLES N SHOULDER PAIN N DEPRESSION (INCLUDING POST ) N BOWEL PROBLEMS N STROKE/TIA Y ULCERS N KNEE PAIN N BENIGN PROSTATIC HYPERPLASIA N OBESITY N GERD/NAUSEA N ANEURYSM N URINARY/BLADDER/KIDNEY PROBLEMS N CORONARY ARTERY DISEASE (CAD) N ADDICTION CONCERNS N USE OF BLOOD THINNERS N SKIN PROBLEMS N EMPHYSEMA N MUSCLE,JOINT OR BONE PROBLEMS N DVT N STOMACH ULCERS N BLOOD CLOTS N USE OF NSAIDS N CONCUSSION OR SPINAL TRAUMA N NEUROPATHY N AIDS/HIV N FRACTURES N HYPERTENSION N ELBOW PAIN N TOURETTE'S N Metal allergy N ANXIETY DISORDER N BLOOD TRANSFUSION N ANEMIA/BLOOD DISORDER N BIPOLAR DISORDER N BRONCHITIS N OSTEOARTHRITIS N TUBERCULOSIS N FOOT PROBLEM N HEART VALVE DISORDERS N ALLERGIES/HAYFEVER N SOFT TISSUE INJURY N INFECTIOUS DISEASE N HEART ARRHYTHMIA N INSOMNIA N HIGH CHOLESTEROL / HYPERLIPIDEMIA N RHEUMATOID ARTHRITIS N EDEMA N CHRONIC PAIN SYNDROME N CAROTID BLOCKAGE N BACK / NECK PROBLEMS N HAVE YOU BEEN HOSPITALIZED OR SEEN IN [facility] ER IN THE PAST YEAR ? N BURSITIS N HERNIATED DISC N DIALYSIS N FIBROMYALGIA N OSTEOPOROSIS N ARTHRITIS N NO SIGNIFICANT PAST MEDICAL HISTORY N PERIPHERAL NEUROPATHY N DIABETES, TYPE N HEARTBURN / REFLUX N HEPATITIS / LIVER DISEASE N GOUT N ALZHEIMER'S DISEASE N SLEEP DISORDER N HERPES N HEADACHES/MIGRAINES N SEIZURES/EPILEPSY N VASCULAR DISEASE N Blood Disorder N HIP PAIN N DIZZINESS N HEAD TRAUMA OR INJURY N HEART DISEASE/HEART PROBLEMS N MULTIPLE SCLEROSIS N CANCER: SPECIFY N CARDIAC ARRHYTHMIA N ANESTHESIA COMPLICATIONS N ATRIAL FIBRILLATION N AUTOIMMUNE DISEASE N Past Encounters Encounter ID Performer Location Encounter Start Date Encounter Closed Date Diagnosis/Indication Diagnosis SNOMED-CT Code Diagnosis ICD10 Code Diagnosis Note [id number] Gelacio Kowalski MD [facility] [place] [address] [place] [address] 11/26/2021 00:00:00 11/28/2021 15:54:36 [id number] Gelacio Kowalski MD [facility] [place] [address] [place] [address] 02/23/2022 00:00:00 02/23/2022 12:32:46 [id number] Gelacio Kowalski MD [facility] [place] [address] [place] [address] 03/11/2022 00:00:00 03/11/2022 12:12:04 [id number] Gelacio Kowalski MD [facility] [place] [address] [place] [address] 03/23/2022 00:00:00 03/23/2022 11:35:48 [id number] Almas Montgomery MD [facility] [place] [address] [place] [address] 06/09/2022 10:30:53 06/09/2022 12:42:01 Pain of left hand 8625526663 78879 M79.642 Laceration of finger of left hand 6762053198 7877172 S61.211A Open fract ure of distal phalanx of finger 30569400 S62.667B [id number] Almas Montgomery MD [facility] [place] [address] [place] [address] 06/16/2022 10:13:04 06/16/2022 11:00:45 Pain of left hand 6845618681 43980 M79.642 Laceration of finger of left hand 9847815046 4398169 S61.211A Fracture o f phalanx of finger 23077797 S62.667D [id number] Almas Montgomery MD [facility] [place] [address] [place] [address] 07/11/2022 11:38:22 07/11/2022 17:20:38 Pain of left hand 9870970700 82268 M79.642 Laceration of finger of left hand 2017427091 5555610 S61.211D Fracture o f phalanx of finger 07939875 S62.667D [id number] Gelacio Kowalski MD [facility] [place] [address] [place] [address] 02/10/2023 10:42:24 02/10/2023 12:18:12 History of right total knee replacement 8931169717 909280 Z96.651 Health Concerns Section Related Observation LastModified by Organization Detai ls LastModified Time None Recorded Concern Status LastModified by Organization Details LastModified Time None Recorded Advance Directives Directive None Recorded Payers Encounter Date Sequence Insurance Name Policy Number Policy Zuniga Covered Member ID [id number] Member ID Guarantor Name 06/09/2022 1 [facility] (MEDICARE REPLACEMENT/A DVANTAGE - HMO) [id number] Albaro E Naye [id number] Albaro Yancey 06/16/2022 1 [facility] (MEDICARE REPLACEMENT/A DVANTAGE - HMO) [id number] Albaro E Naye [id number] Albaro Naye 07/11/2022 1 [facility] (MEDICARE REPLACEMENT/A DVANTAGE - HMO) [id number] Albaro E Naye [id number] Albaro Naye 02/10/2023 1 [facility] (MEDICARE REPLACEMENT/A DVANTAGE - HMO) [id number] Albaro E Naye [id number] Albaro Yancey Notes Date Note Type Note Provider Name and Address Organization Details Recorded Time 06/09/2022 text/html patient is a 67-year-old male who suffered an injury to his left 5th finger 2 days ago. The patient was closing a heavy metal gate when the roller wheel on the gait rolled over his finger and crushed it. He had a significant laceration to the pad of the left 5th finger also. He went to the emergency room at [facility] had x-rays and exam performed. X-rays demonstrated a closed acute traumatic nondisplaced transverse fracture through the distal phalanx of the left 5th finger. This was an open fracture with a significant laceration through the pad of the finger. He had several sutures placed after irrigation and was placed on antibiotics. He is currently on a course of Augmentin he was given pain medication as well and splinted he states that for the most part he is not having too much discomfort. He is able to wiggle his fingers today I removed the splint and dressing as it was soaked through with dried blood to inspect it further. There was no active bleeding currently. He has some numbness throughout the finger pad due to laceration with significant swelling, there is obvious skin changes due the fact that it is retaining too much moisture. Otherwise the sutures are intact laceration is well approximated clean and dry. The nail is intact as well. He is able to do some motion of the the IP joint flexor extensor tendons appear to be intact. He comes in today for initial evaluation and further treatment recommendations. I reviewed the x-rays in detail today with the patient and agree with the above findings.Past medical history sheet was reviewed and signed on the intake sheet today's date drug allergies current medications family social history previous surgical history 10 point review of systems was reviewed and discussed in detail today with the patient. HEBER Mercado [address], [facility], [place], [address], Scheduling [employer] [facility] [employer] 06/09/2022 12:25:40 06/16/2022 text/html Patient returns for recheck of his left 5th finger. Ten days ago he was closing a heavy metal gate and crushed his left 5th finger he had a nondisplaced fracture through the distal phalanx transverse in nature. He also had a significant laceration to the pad of the finger. This required sutures he has multiple sutures overall everything looks well otherwise. He does have sensation at the distal tip not so much over the pad with the laceration is concerned. It appears to be clean and dry today healing well the dressing was removed he is able to wiggle his finger can actually flex the PIP and D IP joints fairly well. Denies any significant discomfort has been protecting it today the skin looks like it is drying out it was retaining a little bit too much moisture in the old dressing that he had on. He has been wearing a splint otherwise has no complaints. We will remove the sutures today that are intact the wound appears to be healing well. HEBER Mercado [address], [address], [place], [address], [employer] 06/16/2022 11:18:32 07/11/2022 text/html patient returns for recheck of his left 5th finger. A little over 1 month ago he had a crush injury with a heavy metal gate he had a transverse nondisplaced fracture through the distal phalanx also had a significant laceration to the pad of the finger which required multiple sutures. This is all healed up nicely. His skin looks good the nail also had no significant trauma he did not lose the nail. He states overall the finger is starting to feel better he has some hypersensitivity throughout the pad of the finger due to the nature of the injury little spots of numbness are also noted by his report overall does not have any pain at rest has some fairly good motion of the D IP joint and really no discomfort through the arc of motion. He comes in today for recheck and new x-rays. HEBER Mercado [address] [facility], [facility], [place], [address], [place] [facility] 07/11/2022 12:11:00
--- OUTSIDE RECORDS SUMMARY | 2024-07-17 17:33 | XMS_ITS | Clinical Summary ---
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 Gender Identity Not on file Sexual Orientation Not on file Plan of Treatment Health Maintenance Due Date Last Done Comments Hepatitis C Virus (HCV) Screening 1955 TdaP Immunization 1955 Colonoscopy 1998 Colorectal Cancer Screening 1998 Cologuard 2003 Immunochemical Fecal Occult Blood 2003 Pneumococcal Immunization (50+ years) (1 of 1 - PCV) 2003 Zoster Immunization (2 of 3) 06/09/2014 04/14/2014 Influenza Immunization (#1) 11/05/202312/04, 12/10/2018, 11/21/2017, Additional history exists SARS-COV-2 Immunization (2023- season) 2023 Respiratory Syncytial Virus (RSV) Immunization (Adult) (1 - 1-dose 75+ series) 02/12/2028 DTaP/Tdap/Td Immunization Discontinued 08/17/1994 Hepatitis B Immunization Aged Out No longer eligible based on patient's age to complete this topic Meningococcal Immunization (ACWY) Aged Out No longer eligible based on patient's age to complete this topic Rotavirus Immunization Aged Out No lo nger eligible based on patient's age to complete this topic
== END 2024-07-17 17:26 | disposition home or self-care (01) ==
PROVIDERS: PCP Family Medicine Adolescent Medicine; Visit Provider Family Medicine Adolescent Medicine
DX: M54.50 Low back pain, unspecified (principal)
CPT/HCPCS: 72100

== ENCOUNTER 2024-11-08 01:41 | Day surgery (SDC) | payer MEDICARE, SELFPAY ==
[2024-10-28 14:32] VITALS: BMI 35.2
[2024-11-08 08:20] VITALS: BP 141/83; PULSE 70; RESP 16; TEMP 36.2; O2SAT 96
[2024-11-08] MEDS: LACTATED RINGERS 1,000 ML 150 ML IV CONT (08:29)
--- NOTE | 2024-11-08 08:41 | WPDANESEPPF ---
Anes - Initial Pre Proc Eval Procedure: Operation Date: 11/08/24 09:30 Proposed Procedures p Diagnostic Colonoscopy - Kenny Hernandez MD Date/Time: 11/08/24 08:41 Surgeon: Kenny Hernandez MD Pre Op Diagnosis: Other fecal abnormalities Patient Data Age: 69 Gender: M Height: 1.83 m Weight: 117.1 kg Last Vital Signs Temp 36.2 C L 11/08/24 08:20 Pulse 70 11/08/24 08:20 Resp 16 11/08/24 08:20 BP 141/83 H 11/08/24 08:20 Pulse Ox 96 11/08/24 08:20 O2 Del Method Room Air 11/08/24 08:20 Allergies Allergy/AdvReac Type Severity Reaction Status Date / Time No Known Allergies Allergy Verified 11/08/24 08:19 Home Medications ?Medication ?Instructions ?Recorded ?Confirmed ?Type [id number] 300 mcg-K 60 1 tablet PO DAILY 01/18/22 11/08/24 History mcg-lycop 600 mcg-lutein 300 mcg tablet (Centrum Silver Men) acetaminophen 500 mg tablet 1,000 mg (2 x 500 mg) PO Q6H #90 02/10/22 10/28/24 Rx tabs aspirin 81 mg chewable tablet 81 mg PO DAILY 03/02/22 11/08/24 History propranolol 120 mg capsule,24 120 mg PO DAILY #100 caps 05/15/23 11/08/24 Rx hr,extended release simvastatin 40 mg tablet 40 mg PO DAILY #100 tabs 05/15/23 11/08/24 Rx diclofenac potassium 50 mg tablet See Rx Instructions .Route 07/04/24 10/28/24 Rx .COMPLEX #300 tabs indomethacin 50 mg capsule 50 mg PO TID PRN pain #90 caps 07/18/24 10/28/24 Rx testosterone cypionate 200 mg/mL 300 mg (1.5 mL) IM WEEKLY #18 mL 07/26/24 10/28/24 Rx intramuscular oil needle (disp) 18 G 18 gauge x 1 #20 ea 08/02/24 08/09/24 Rx syringe with needle 5 mL 22 gauge #20 ea 08/02/24 08/09/24 Rx x 1 1/2 Patient hx anesthesia problems: none Family hx anesthesia problems: none Results Review: All pre-operative results and documents have been reviewed as part of the pre-operative evaluation. [facility] Past Medical History Medical History (Updated 11/07/24 @ 15:57 by Ortiz Gonzalez DO) JOVAN (obstructive sleep apnea) HTN (hypertension) Arthritis of right knee Cerebrovascular accident (2011) Presented with ataxia, no residual deficits. Hypercholesterolemia Essential tremor Surgical History Surgical History (Updated 02/10/22 @ 00:26 by Ana María Mendoza PA-C) History of right knee joint replacement (02/09/22) Family History Family History (Updated 02/10/22 @ 00:38 by Ana María Mendoza PA-C) Father Cerebrovascular accident Social History Social History (Updated 11/08/24 @ 08:50 by Ortiz Gonzalez DO) Social History: Surrogate medical decision maker: Linn Yancey, spouse. Code status: Full code. Smoking packs per day: 1 Smoking cigarettes per day: 20.0 Years smoked: 30 Smoking pack-years: 30.00 Smoking status: Former smoker Tobacco type: cigarettes Smoking end date: 09/03/97 Alcohol intake: current Alcohol use details: 6 beers/day Substance use: never Do You Feel Safe in your Home?: Yes Lack of Transportation: No Lack of Food: Never True Current Housing: I Have Housing Concerned About Future Housing: No Difficulty Paying Gas/Electric Bills: No Difficulty Paying for Meds: No Currently Unemployed: No Education: Bachelor's Degree Difficulty w/ Childcare or Family Care: No Living arrangements: with family Additional living arrangements comments: The patient lives with his in [place]. 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 Spiritual care concerns: No Anes - Eval Final PreProcedure Day of Procedure 11/08/24 08:41 Patient weight: obese Heart: regular rate and rhythm Lungs: clear to auscultation Airway: Mallampati scale class II Neurological: alert and oriented Last oral intake: >/= 8 hours ASA classification: III Emergent: no Anesthetic plan: proceed Anesthesia type and monitoring: general GIVS and standard monitoring Results Review: All pre-operative results and documents have been reviewed as part of the pre-operative evaluation. Informed Consent: The patient's anesthetic plan and its attendant risks and benefits were discussed with the patient/family/POA. Questions were solicited and answers provided to the satisfaction of the patient/family/POA.
--- NOTE | 2024-11-08 09:10 | PM.HPGS ---
History of Present Illness History of Present Illness Consent: Risks, benefits, and alternatives have been discussed and questions answered. Patient agrees to proceed with procedure. Chief complaint: Other fecal abnormalities Narrative: Albaro Yancey is a 69 year old male with + cologuard, last colonoscopy 6 years ago Review of Systems Review of Systems: All systems reviewed & are unremarkable except as noted in HPI and below PMFSH Past Medical History Medical History (Updated 11/08/24 @ 09:19 by Kenny Hernandez MD) Positive colorectal cancer screening using Cologuard test JOVAN (obstructive sleep apnea) HTN (hypertension) Arthritis of right knee Cerebrovascular accident (2011) Presented with ataxia, no residual deficits. Hypercholesterolemia Essential tremor Surgical History Surgical History (Updated 02/10/22 @ 00:26 by Ana María Mendoza PA-C) History of right knee joint replacement (02/09/22) Family History Family History (Updated 02/10/22 @ 00:38 by Ana María Mendoza PA-C) Father Cerebrovascular accident Social History Social History (Updated 11/08/24 @ 08:50 by Ortiz Gonzalez DO) Social History: Surrogate medical decision maker: Linn Yancey, spouse. Code status: Full code. Smoking packs per day: 1 Smoking cigarettes per day: 20.0 Years smoked: 30 Smoking pack-years: 30.00 Smoking status: Former smoker Tobacco type: cigarettes Smoking end date: 09/03/97 Alcohol intake: current Alcohol use details: 6 beers/day Substance use: never Do You Feel Safe in your Home?: Yes Lack of Transportation: No Lack of Food: Never True Current Housing: I Have Housing Concerned About Future Housing: No Difficulty Paying Gas/Electric Bills: No Difficulty Paying for Meds: No Currently Unemployed: No Education: Bachelor's Degree Difficulty w/ Childcare or Family Care: No Living arrangements: with family Additional living arrangements comments: The patient lives with his in [place]. 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 Spiritual care concerns: No Meds Home Medications and Allergies Home Medications ?Medication ?Instructions ?Recorded ?Confirmed ?Type [id number]-[id number]-[id number] 300 mcg-K 60 1 tablet PO DAILY 01/18/22 11/08/24 History mcg-lycop 600 mcg-lutein 300 mcg tablet (Centrum Silver Men) acetaminophen 500 mg tablet 1,000 mg (2 x 500 mg) PO Q6H #90 02/10/22 10/28/24 Rx tabs aspirin 81 mg chewable tablet 81 mg PO DAILY 03/02/22 11/08/24 History propranolol 120 mg capsule,24 120 mg PO DAILY #100 caps 05/15/23 11/08/24 Rx hr,extended release simvastatin 40 mg tablet 40 mg PO DAILY #100 tabs 05/15/23 11/08/24 Rx diclofenac potassium 50 mg tablet See Rx Instructions .Route 07/04/24 10/28/24 Rx .COMPLEX #300 tabs indomethacin 50 mg capsule 50 mg PO TID PRN pain #90 caps 07/18/24 10/28/24 Rx testosterone cypionate 200 mg/mL 300 mg (1.5 mL) IM WEEKLY #18 mL 07/26/24 10/28/24 Rx intramuscular oil needle (disp) 18 G 18 gauge x 1 #20 ea 08/02/24 08/09/24 Rx syringe with needle 5 mL 22 gauge #20 ea 08/02/24 08/09/24 Rx x 1 1/2 Allergies Allergy/AdvReac Type Severity Reaction Status Date / Time No Known Allergies Allergy Verified 11/08/24 08:19 Vital Signs Vital Signs - 24 hr 11/08/24 08:20 Temperature 97.1 F L Pulse Rate 70 Respiratory Rate 16 Blood Pressure 141/83 H Pulse Oximetry 96 Oxygen Delivery Room Air Exam Const: General: comfortable and no acute distress HENMT: Face/Nose/Sinus: Normal nares present Eyes: General: appearance normal, both eyes and all related structures Neck: Neck: no JVD Resp: Auscultation: clear to auscultation bilaterally Cardio: Rate: regular rate Rhythm: regular rhythm GI: Inspection: non-distended GI Palp: Yes Soft to palpation Skin: General skin exam: normal color Neuro: General: gait normal Speech: normal speech Extrem: General: normal to inspection Psych: Mental Status: mental status grossly normal Assessment and Plan Assessment and plan (1) Positive colorectal cancer screening using Cologuard test: Code(s): R19.5 - Other fecal abnormalities Status: Acute Assessment and Plan: colonoscopy
[2024-11-08 09:20] VITALS: BP 128/66; PULSE 61; RESP 16; O2SAT 94
[2024-11-08 09:30] VITALS: BP 119/65; PULSE 64; RESP 16; O2SAT 95
[2024-11-08 09:40] VITALS: BP 143/80; PULSE 60; RESP 16; O2SAT 95
== END 2024-11-08 09:51 | disposition home or self-care (01) ==
PROVIDERS: PCP Family Medicine Adolescent Medicine; Referring Provider Nurse Practitioner Family; Visit Provider Internal Medicine Gastroenterology
PROC: 0DJD8ZZ Inspection of Lower Intestinal Tract, Via Natural or Artificial Opening Endoscopic (ICD-10-PCS; CPT 45378; principal; 2024-11-08 09:30)
DX: R19.5 Other fecal abnormalities (principal); K64.8 Other hemorrhoids; K57.30 Diverticulosis of large intestine without perforation or abscess without bleeding; G47.33 Obstructive sleep apnea (adult) (pediatric); I10 Essential (primary) hypertension; E78.00 Pure hypercholesterolemia, unspecified; Z86.73 Personal history of transient ischemic attack (TIA), and cerebral infarction without residual deficits; Z87.891 Personal history of nicotine dependence
CPT/HCPCS: 45378; J2704; J7120